=== PATIENT | female | born 1990 | race Caucasian/White ===

== ENCOUNTER 2016-09-19 00:37 | Emergency (ER) | payer SELFPAY ==
[2016-09-19 01:30] LABS: HEMATOCRIT 35.7 % (35.0-45.0); HEMOGLOBIN 11.5 gm/dL (11.7-15.5); MEAN CORPUSCULAR HEMOGLOBIN 21.6 pg (27.0-31.0); MEAN CORPUSCULAR HGB CONC 32.2 pg (28.0-36.0); MEAN PLATELET VOLUME 8.6 fl; PLATELET COUNT 190 Th/cmm (150-400); RED BLOOD COUNT 5.32 Mil/cmm (3.80-5.10); RED CELL DISTRIBUTION WIDTH 16.5 % (11.5-20.0); WHITE BLOOD COUNT 7.2 Th/cmm (4.8-10.8)
[2016-09-19] MEDS: Lactated Ringer 1,000 ML IV ONE (01:30)
--- NOTE | 2016-09-19 01:31 | ED Physician Chart ---
Chief Complaint/HPI - Patient Information Date Seen:: 09/19/16 Time Seen:: 00:50 Chief Complaint:: vomiting History of Present Illness:: this is a 26 yo female with vomiting all day after eating from a [employer] yesterday. she denies and admits to drug use. she states that her illness feels like food poisoning which she had before. she denies fever, cough and chest pain. Allergies:: Allergies Allergy/AdvReac Type Severity Reaction Status Date / Time No Known Allergies Allergy Verified 09/19/16 00:56 Vitals:: Vital Signs - 8 hr 09/19/16 00:40 Temp 98.1 F HR 85 RR 18 BP 117/72 O2 Sat % 97 Historian:: Patient Review:: Nurse's Note Reviewed Review of Systems - Review of Systems General/Constitutional: No fever, No chills, No weight loss, No weakness, No diaphoresis, No edema, No loss of appetite Skin: No skin lesions, No rash, No bruising Head: No headache, No light-headedness Eyes: No loss of vision, No pain, No diplopia ENT: No earache, No nasal drainage, No sore throat, No tinnitus Neck: No neck pain, No swelling, No thyromegaly, No stiffness, No mass noted Cardio Vascular: No chest pain, No palpitations, No PND, No orthopnea, No edema Pulmonary: No SOB, No cough, No sputum, No wheezing GI: Nausea, Vomiting, No diarrhea, Pain, No melena, No hematochezia, No constipation, No hematemesis G/U: No dysuria, No frequency, No hematuria Musculoskeletal: No bone or joint pain, No back pain, No muscle pain Endocrine: No polyuria, No polydipsia Psychiatric: No prior psych history, No depression, No anxiety, No suicidal ideation Hematopoietic: No bruising, No lymphadenopathy Allergic/Immuno: No urticaria, No angioedema Neurological: No syncope, No focal symptoms, No weakness, No paresthesia, No headache, No seizure, No dizziness, No confusion, No vertigo Past Medical History - Past Medical History Obtainable: Yes Past Medical History: No significant medical hx Family History: None Social History: Smoker, No Alcohol, Illicit Drug Use Surgical History: None Psychiatricy History: None Medication: Reviewed Family Medical History - Family Member Mother History Unknown: Yes Other Medical History: PT DENIES ANY FAMILY MEDICAL HISTORY Physical Exam - Physical Examination General/Constitutional: Awake, Well-developed, well-nourished, Alert, No distress, GCS 15, Non-toxic appearing, Ambulatory Head: Atraumatic Eyes: Lids, conjuctiva normal, PERRL, EOMI Skin: Nl inspection, No rash, No skin lesions, No ecchymosis, Well hydrated, No lymphadenopathy ENMT: External ears, nose nl, Nasal exam nl, Lips, teeth, gums nl Neck: Nontender, Full ROM w/o pain, No JVD, No nuchal rigidity, No bruit, No mass, No stridor Respiratory: Nl effort/Exclusion, Clear to Auscultation, No Wheeze/Rhonchi/Rales Cardio Vascular: RRR, No murmur, gallop, rubs, NL S1 S2 GI: No organomegaly, No hernia, Normal BS's, Nondistended, No mass/bruits, No McBurney tenderness Other GI comments:: mild diffuse tenderness of the abdomen : No CVA tenderness Extremities: No tenderness or effusion, Full ROM, normal strength in all extremities, No edema, Normal digits & nails Neuro/Psych: Alert/oriented, DTR's symmetric, Normal sensory exam, Normal motor strength, Judgement/insight normal, Mood normal, Normal gait, No focal deficits Misc: normal gait, Normal back, No paraspinal tenderness Assessment - Assessment General Assessment: food poisoning ED Septic Shock - . Is Septic Shock (SBP<90, OR Lactate>4 mmol\L) present?: No - <6hrs of presentation: Vital Signs: Vital Signs - 8 hr 09/19/16 00:40 Temp 98.1 F HR 85 RR 18 BP 117/72 O2 Sat % 97 Reassessment (Disposition) - Diagnosis Diagnosis:: vomiting food poisoning - Aftercare/Follow up Instructions Aftercare/Follow-Up Instructions:: Counseled pt regarding lab results/diagnosis & need follow up, Refer to Discharge Instructions, Counseled pt & family regarding lab results/diagnosis & need follow up - Patient Disposition Discharge/Transfer:: Home Condition at Disposition:: Unchanged ED Discharge Plan - Patient Disposition Admit/Discharge/Transfer: PT DISCHARGED HOME
[2016-09-19 01:58] LABS: AMPHETAMINE URINE NEGATIVE (NEGATIVE); BARBITURATES URINE NEGATIVE (NEGATIVE); METHADONE URINE NEGATIVE (NEGATIVE)
[2016-09-19 02:01] LABS: URINE BILIRUBIN SMALL (NEGATIVE); URINE BLOOD MODERATE (NEGATIVE); URINE COLOR YELLOW; URINE GLUCOSE (UA) NEGATIVE (NEGATIVE); URINE KETONE 40 mg/dL (NEGATIVE); URINE PH 5.5; URINE PROTEIN 30 mg/dL (NEGATIVE); URINE UROBILINOGEN 0.2 E.U./dL (0.2 - 1.0)
[2016-09-19 02:02] LABS: URINE BACTERIA MODERATE /hpf (NONE SEEN); URINE EPITHELIAL CELLS MODERATE /lpf (FEW)
[2016-09-19 02:13] LABS: ANISOCYTOSIS 2+; BAND NEUTROPHILE 2 % (0-10); MICROCYTOSIS 2+; NEUTROPHILS 85 % (40-80); PLATELET ESTIMATE ADEQUATE (NORMAL); POIKILOCYTOSIS 2+; TOTAL CELLS COUNTED 100
[2016-09-19 02:14] LABS: OVALOCYTES 1+; SCHISTOCYTES 1+
[2016-09-19 02:15] LABS: MEAN CELL VOLUME 67.1 fl (81-100)
[2016-09-19 02:42] LABS: ANION GAP 15.9 (7.0-16.0); BUN - UREA NITROGEN 13 mg/dL (7-25); BUN/CREATININE RATIO 14.4; CALCIUM SERUM 8.8 mg/dL (8.6-10.3); CHLORIDE 103 mEq/L (98-107); CREATININE - SERUM 0.9 mg/dL (0.6-1.2); GLUCOSE 101 mg/dL (70-105); POTASSIUM SERUM 2.9 mEq/L (3.5-5.1)
[2016-09-19 02:43] LABS: ALB/GLOB RATIO 1.2 (1.0-1.8); ALKALINE PHOSPHATASE 45 U/L (34-104); BILIRUBIN,TOTAL 0.5 mg/dL (0.3-1.0); SGOT 35 U/L (13-39); SGPT/ALT 28 U/L (7-52)
[2016-09-19 02:45] LABS: SODIUM SERUM 138 mEq/L (136-145)
== END 2016-09-19 02:10 | disposition home or self-care (01) ==
LOC: ER 00:37
DX: R11.10 Vomiting, unspecified (principal); T62.91XA Toxic effect of unspecified noxious substance eaten as food, accidental (unintentional), initial encounter; F17.200 Nicotine dependence, unspecified, uncomplicated; Y92.89 Other specified places as the place of occurrence of the external cause
CPT/HCPCS: 36415-UA; 80053-TC; 80307; 81001-TC; 81025-TC; 84443-TC; 85007-TC; 85027-TC; 96374; J2405; Z7502